=== PATIENT | male | born 1975 | race Caucasian/White ===

== ENCOUNTER 2022-12-24 15:34 | Emergency (ER) | payer OTHER ==
[~2022-12-24] VITALS: Ht 177.8 cm; Wt 92.8 kg
[~2022-12-24 15:34] MED LIST: BENADRYL 50MG C50 MG OR; CORTISPORIN OP7.5 ML OS; PATANOL0.1 % OS
[2022-12-24 15:39] VITALS: BP 134/98
[2022-12-24 16:01] VITALS: BP 142/86
[2022-12-24] MEDS ORDERED: TOBRAMYCIN0.31 OD (16:14)
== END 2022-12-24 16:31 | disposition home or self-care (01) | DRG 125 ==
LOC: ED 15:34
DX: H10.9 Unspecified conjunctivitis (principal)